=== PATIENT | female | born 1935 | race Caucasian/White ===

== ENCOUNTER 2017-07-07 07:43 | Day surgery (SDC) | payer MEDICARE, OTHER ==
[2017-07-07 08:27] LABS: ADD MAN DIFF? NO
[2017-07-07] MEDS ORDERED: POLYMYXIN/BACITRACIN 1L IRRIG (08:27)
[2017-07-07 08:33] LABS: WHITE BLOOD COUNT 5.8 10^3/ul (4.8-10.8)
[2017-07-07 08:33] LABS: BASOPHILS % 0.7 % (0.0-2.0); EOSINOPHILS # 0.1 10^3/ul (0.0-0.5); EOSINOPHILS % 1.4 % (0.0-7.0); HEMOGLOBIN 11.5 g/dl (12.0-16.0); LYMPHOCYTES # 1.4 10^3/ul (0.8-2.9); LYMPHOCYTES % 23.4 % (15.0-51.0); MEAN CORPUSCULAR HEMOGLOBIN 28.5 pg (29.0-33.0); MEAN CORPUSCULAR HGB CONC 32.9 g/dl (32.0-37.0); MEAN CORPUSCULAR VOLUME 86.6 fl (82.0-101.0); MEAN PLATELET VOLUME 11.1 fl (7.4-10.4); MONOCYTE # 0.3 10^3/ul (0.3-0.9); MONOCYTES % 5.9 % (0.0-11.0); NEUTROPHIL # 3.9 10^3/ul (1.6-7.5); NEUTROPHILS % 68.1 % (39.0-77.0); PLATELET COUNT 223 10^3/UL (140-415); RED BLOOD COUNT 4.04 10^6/ul (4.20-5.40); RED CELL DISTRIBUTION WIDTH 13.3 % (11.5-14.5)
[2017-07-07] MEDS ORDERED: SOD CHLORIDE 0.9% 500 ML (08:35)
[2017-07-07] MEDS ORDERED: BUPIVACAINE 0.5% (SDV) 30 ML INJ (08:35)
[2017-07-07] MEDS ORDERED: LIDOCAINE 1% (MDV) 20 ML INJ ×3 (08:35→09:43)
[2017-07-07] MEDS ORDERED: IODIXANOL LOCM 50 ML BTL (08:36)
[2017-07-07] MEDS ORDERED: CEFAZOLIN 2 GM/50 ML (PMX) 50 ML IVPB (08:45)
[2017-07-07 08:49] LABS: ALANINE AMINOTRANSFERASE 19 IU/L (13-69); ALBUMIN 4.1 g/dl (3.3-4.9); ALKALINE PHOSPHATASE 116 IU/L (42-121); ANION GAP 19 (8-16); ASPARTATE AMINO TRANSFERASE 21 IU/L (15-46); BILIRUBIN,INDIRECT 0.2 mg/dl (0-1.1); BILIRUBIN,TOTAL 0.2 mg/dl (0.2-1.3); CARBON DIOXIDE 17 mmol/L (21-31); CHLORIDE 112 mmol/L (97-110); GLUCOSE 146 mg/dl (70-220); TOTAL PROTEIN 7.5 g/dl (6.1-8.1)
[2017-07-07 09:07] LABS: BLOOD UREA NITROGEN 31 mg/dl (7-20); CALCIUM 9.2 mg/dl (8.4-10.2); POTASSIUM 4.2 mmol/L (3.5-5.1); SODIUM 144 mmol/L (135-144)
[2017-07-07] MEDS ORDERED: MIDAZOLAM 1 MG/ML 2 ML INJ (09:42)
[2017-07-07] MEDS ORDERED: PROPOFOL 20 ML (09:43)
[2017-07-07] MEDS ORDERED: FENTAnyl 50 MCG/ML VIAL (09:43)
[2017-07-07 10:11] LABS: INR 0.92; PROTIME 12.4 Sec (11.9-14.9)
[2017-07-07 10:12] LABS: PARTIAL THROMBOPLASTIN TIME 25.1 Sec (25.0-35.0)
[2017-07-07] MEDS ORDERED: CEFAZOLIN 1 GM INJ IM (11:00)
[2017-07-07] MEDS ORDERED: OXYCODONE/ACETAMINOPHEN (5/325) TAB PO ×2 (12:00)
[2017-07-07] MEDS ORDERED: SOD CHLORIDE 0.45% 1,000 ML IV (13:00)
[2017-07-07] MEDS ORDERED: CEFAZOLIN 1 GM/50 ML (PMX) 50 ML IVPB (13:00)
[2017-07-07] MEDS ORDERED: DIAZEPAM 5 MG TAB PO (13:00)
== END 2017-07-07 12:45 | disposition home or self-care (01) ==
LOC: SDS 07:43
DX: Z45.010 Encounter for checking and testing of cardiac pacemaker pulse generator [battery] (principal); I38 Endocarditis, valve unspecified; E11.9 Type 2 diabetes mellitus without complications; I10 Essential (primary) hypertension; R94.31 Abnormal electrocardiogram [ECG] [EKG]; I50.43 Acute on chronic combined systolic (congestive) and diastolic (congestive) heart failure; E78.2 Mixed hyperlipidemia
CPT/HCPCS: 33264; 71045; 80053; 82962; 85025; 85610; 85730; 93005

== ENCOUNTER 2017-12-30 10:54 | Emergency (ER) | payer MEDICARE, OTHER | END 2017-12-30 12:24 | disposition home or self-care (01) | LOC: E/R 10:54 | DX: S99.922A Unspecified injury of left foot, initial encounter (principal); I10 Essential (primary) hypertension; E11.9 Type 2 diabetes mellitus without complications; X50.9XXA Other and unspecified overexertion or strenuous movements or postures, initial encounter; Y92.9 Unspecified place or not applicable; Z79.82 Long term (current) use of aspirin; Z95.0 Presence of cardiac pacemaker; Z79.84 Long term (current) use of oral hypoglycemic drugs | CPT/HCPCS: 99283 ==